=== PATIENT | male | born 1970 | race Caucasian/White ===

== ENCOUNTER 2022-09-03 10:58 | Day surgery (SDC) | payer BC ==
[2022-09-03] VITALS (13 sets, daily range): BP systolic 139–176; BP diastolic 71–115
[~2022-09-03] VITALS: Ht 177.8 cm; Wt 90.2 kg
[2022-09-03] MEDS ORDERED: METO50TA16 PO (11:33)
[2022-09-03] MEDS ORDERED: HYDR-3972 PO (11:33)
[2022-09-03] MEDS ORDERED: OLME20TA23 PO (11:33)
[2022-09-03] MEDS ORDERED: ATOR10TA70 PO (11:33)
[2022-09-03] MEDS ORDERED: LIDOcaine 1% 30ml preserv. free vial ONE (11:35)
[2022-09-03] MEDS ORDERED: midazolam 1 mg/ML 2ml injection ONE ×2 (11:36→12:22)
[2022-09-03] MEDS ORDERED: fentaNYL/PF 50MCG/1 ML 2ML syringe ONE ×2 (11:36→12:22)
== END 2022-09-03 13:30 | disposition home or self-care (01) ==
LOC: SSTAY O 10:58
PROVIDERS: ATTEND Radiology Vascular & Interventional Radiology
DX: K91.872 Postprocedural seroma of a digestive system organ or structure following a digestive system procedure (principal); Y83.8 Other surgical procedures as the cause of abnormal reaction of the patient, or of later complication, without mention of misadventure at the time of the procedure
CPT/HCPCS: 10060; 76942; 99152; 99153; C1729; J2250; J3010; J3490; J7030; 10030; A4421; A6258; C1769